=== PATIENT | female | born 1990 | race Caucasian/White ===

== ENCOUNTER 2022-04-23 23:06 | Emergency (ER) | payer MEDICAID ==
[~2022-04-23] VITALS: Ht 144.8 cm; Wt 56.9 kg
[2022-04-23 23:42] VITALS: BP 113/82
[2022-04-24] MEDS ORDERED: ACETAMINOPHEN EXTRA STRENGTH 500 MG TAB PO ONE
[2022-04-24] MEDS ORDERED: NACL 0.9% 1,000 ML IV ONE
--- NOTE | 2022-04-24 00:07 | NUR ---
pt to bed 08.
--- NOTE | 2022-04-24 00:28 | NUR ---
IV RIGHT AC ESTABLISHED. BLOOD COLLECTED AND HANDED TO LAB.
--- NOTE | 2022-04-24 00:29 | NUR ---
31/F BIB SELF C/C ABD CRAMPING X1 WEEK. PER PATIENT PAIN IS "CRAMPING" 05/31. PER PATIENT TEST POSITIVE X2 WEEKS AGO. PATIENT HAS IRREGULAR PERIOD, UNKNOWN LMP. PATIENT DENIES VAGINAL BLEEDING/ FOUL ODOR OR DISCHARGE AT THIS TIME. PAIENT STATED THAT SHES HAD 2 MISCARRIGES IN THE PAST , LAST ONE WAS 2020(1YR AGO). PATIENT RR EVEN AND UNLABORED. DOENST APPEAR TO BE IN DITRESS, BUT TEARY UPON ASSESSMENT. PATIENT PLACED IN GOWN IN BED. BED LOW AND LOCKED. SIDE RAIL UP FOR SAFETY. ALL NEEDS MET. [id number] PMHX, RX DENIES NKA
[2022-04-24 00:33] LABS: BASOPHILS # (AUTO) 0.1 K/uL (0.00-0.22); BASOPHILS % (AUTO) 0.7 % (0.0-2.0); EOSINOPHILS # (AUTO) 0.5 K/uL (0-0.4); EOSINOPHILS % (AUTO) 5.2 % (0.0-4.0); HEMATOCRIT 40.8 % (36-48); LYMPHOCYTES # (AUTO) 2.1 K/uL (2.5-16.5); LYMPHOCYTES % (AUTO) 23.8 % (20.5-51.1); MEAN CORPUSCULAR HEMOGLOBIN 31 pg (27-31); MEAN CORPUSCULAR HGB CONC 34 g/dL (33-37); MONOCYTES # (AUTO) 0.6 K/uL (0.8-1.0); MONOCYTES % (AUTO) 6.5 % (1.7-9.3); NEUTROPHILS # (AUTO) 5.6 K/uL (1.8-7.7); NEUTROPHILS % (AUTO) 63.8 % (42.2-75.2); PLATELET COUNT (AUTO) 230 K/uL (140-450); RED BLOOD CELL COUNT(AUTO) 4.54 MIL/uL (4.20-5.40); RED CELL DISTRIBUTION WIDTH 12.9 % (11.6-13.7); WHITE BLOOD COUNT (AUTO) 8.7 K/uL (4.8-10.8)
[2022-04-24 00:36] LABS: APPEARANCE,URINE CLEAR (CLEAR); BILIRUBIN,URINE NEGATIVE (NEGATIVE); BLOOD, URINE NEGATIVE (NEGATIVE); COLOR,URINE YELLOW (YELLOW); LEUKOCYTE ESTERASE ,URINE NEGATIVE (NEGATIVE); NITRITE, URINE NEGATIVE (NEGATIVE); PH,URINE 7.5 (5.0-9.0); UGLUCOSE NEGATIVE (NEGATIVE)
[2022-04-24 00:53] LABS: ALBUMIN 3.7 g/dL (3.4-5.0); ANION GAP 11.7 (8-16); CARBON DIOXIDE 27.9 mmol/L (21-32); CREATININE 0.7 mg/dL (0.6-1.3); POTASSIUM 3.6 mmol/L (3.5-5.1); TOTAL BILIRUBIN 0.2 mg/dL (0.0-1.0)
--- NOTE | 2022-04-24 00:58 | NUR ---
US AT BEDSIDE
[2022-04-24 02:56] VITALS: BP 113/82
--- NOTE | 2022-04-24 02:56 | NUR ---
Patient discharged with v/s stable. Written and verbal after care instructions given and explained. Patient verbalized understanding. Ambulatory with steady gait. All questions addressed prior to discharge. Advised to follow up with PMD.
== END 2022-04-24 02:56 | disposition home or self-care (01) ==
LOC: MED 23:06
DX: O26.891 Other specified pregnancy related conditions, first trimester (principal); R10.30 Lower abdominal pain, unspecified
CPT/HCPCS: 36415; 76801; 80053; 81003; 81025; 84702; 85025; 96360; 99284; Q0092; J7030